=== PATIENT | female | born 1985 | race Caucasian/White ===

== ENCOUNTER 2019-01-27 19:25 | Emergency (ER) | payer BC, MEDICAID ==
[~2019-01-27] VITALS: Ht 160 cm; Wt 58.2 kg
[~2019-01-27 19:25] MED LIST: PREN-39 PO
[2019-01-27 19:54] VITALS: BP 131/63; PULSE 73; RESP 18; Ht 160 cm; Wt 58.2 kg
--- NOTE | 2019-01-27 20:26 | ERD ---
ER Documentation Chief Complaint Chief Complaint sore throat, fever, cough, R ear pain X 5 HPI 33-year-old female, previously healthy, presents to the emergency department, complaining of 3 days with upper respiratory symptoms including subjective fever, runny nose, chest congestion and general malaise. The patient also reports right ear pain for the last 2 days. No medications taken for pain at this time. ROS All systems reviewed and are negative except as per history of present illness. Medications Home Meds Active Scripts Ibuprofen* (Motrin*) 600 Mg Tab, 600 MG PO Q8, #15 TAB Prov:VENU CHÁVEZ MD 01/27/19 Azithromycin* (Zithromax*) 250 Mg Tablet, 250 MG PO .ZPACK DIRECTED, #6 TAB TAKE 500 MG (2 TABS) THE FIRST DAY THEN 250 MG (1 TAB) DAYS 2-5 Prov:VENU CHÁVEZ MD 01/27/19 Reported Medications Vits W-Ca,Fe,Fa(<1MG) ( Vitamins) 1 Tab Tablet, 1 TAB PO DAILY 09/27/13 Allergies Allergies: Coded Allergies: No Known Allergy (Unverified , 09/18/14) PMhx/Soc Medical and Surgical Hx: pt denies Medical Hx, pt denies Surgical Hx History of Surgery: No Anesthesia Reaction: No Hx Neurological Disorder: No Hx Respiratory Disorders: No Hx Cardiac Disorders: No Hx Psychiatric Problems: No Hx Miscellaneous Medical Probl: Yes (S/P C section 09/27) Hx Alcohol Use: No Hx Substance Use: No Hx Tobacco Use: No Smoking Status: Never smoker Physical Exam Vitals Vital Signs Date Temp Pulse Resp B/P (MAP) Pulse Ox O2 O2 Flow FiO2 Time Delivery Rate 01/27/19 98.6 73 18 131/63 99 19:54 (85) Physical Exam Const: No acute distress Head: Atraumatic Eyes: Normal Conjunctiva ENT: Right ear: Prachi-tympanic erythema, TM opaque, retracted, with significant edema of the canal. Contralateral ear normal. Neck: Full range of motion. No meningismus. Resp: Clear to auscultation bilaterally Cardio: Regular rate and rhythm, no murmurs Abd: Soft, non tender, non distended. Normal bowel sounds Skin: No petechiae or rashes Back: No midline or flank tenderness Ext: No cyanosis, or edema Neur: Awake and alert Psych: Normal Mood and Affect Procedures/MDM Vital signs stable, differential diagnosis include but not limited to: infection bacterial/viral/fungal. Tonsillitis, eustachian dysfunction, allergies, foreign body, cholesteatoma. Less likely mastoiditis, malignant otitis, meningitis. Physical examination and clinical presentation consistent most likely with otitis media. During the ED course the patient remained stable, no new complaints. Clinical impression discussed with the patient who agrees with management. The patient is stable to be treated outpatient and will be discharged home with a Rx for antibiotics and ibuprofen. Some side effects of prescribed medications (headache, rash, nausea, vomiting, diarrhea, drowsiness, bleeding, hypertension, interactions with other medications) were reviewed. The patient was instructed to follow up with the primary care provider in the next 48h. If symptoms persist, worsen or new symptoms develop, then patient should return to the ED immediately. Disclaimer: Inadvertent spelling and grammatical errors are likely due to EHR /dictation software use and do not reflect on the overall quality of patient care. Also, please note that the electronic time recorded on this note does not necessarily reflect the actual time of the patient encounter. Departure Diagnosis: Primary Impression: Right otitis media Condition: Stable Additional Instructions: Muchas deysi por [facility] para benitez servicio. Esperamos que en benitez visita a la is[place] de emergencia benitez problema medico haya sido solucionado y que se sienta mucho mejor. Para estar seguros que benitez mejoria sigue en proceso, le pedimos el favor de hacer margarita shanice de seguimiento medico con benitez doctor primario en los proximos 2-4 amaya. Lleve con usted estos documentos y las medicinas recetadas. Si trey sintomas empeoran, NO SE ESPERE, por favor regrese a israel de emergencia INMEDIATAMENTE. En benito que usted no tenga un mdico de atencin primaria: Llame al mdico o clnica comunitaria de referencia que aparece abajo williams las horas de consultorio para hacer margarita shanice para que le vean. CLINICAS: [facility] [phone] [facility] [phone] [facility] [phone] [facility] [phone] [place] [id number] [phone] [facility]. [phone] VENU BEE MD Jan 27, 2019 20:26
[2019-01-27] MEDS ORDERED: AZIT250T PO (20:39)
[2019-01-27] MEDS ORDERED: IBUP-1542 PO (20:39)
== END 2019-01-27 21:45 | disposition home or self-care (01) ==
LOC: FTE 19:25
DX: H66.91 Otitis media, unspecified, right ear (principal)
CPT/HCPCS: 99283

== ENCOUNTER → 2019-07-06 | Emergency (ER) | payer BC ==
[~2019-07-06] VITALS: Ht 157.5 cm; Wt 60.0 kg
[~2019-07-06] MED LIST changes: +AZIT250T PO; +IBUP-1542 PO; +IBUPROFEN 800 MG TAB PO ONE; +NAPR-985 PO
[2019-07-06 11:36] VITALS: BP 121/76; PULSE 85; RESP 18; Ht 157.5 cm; Wt 60.0 kg
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
== END | disposition home or self-care (01) ==
LOC: FTE 11:34
DX: M25.512 Pain in left shoulder (principal); M25.522 Pain in left elbow
CPT/HCPCS: 73030; 73080; 99283; Z7610